=== PATIENT | female | born 1945 | race Caucasian/White ===

== ENCOUNTER 2020-12-18 06:49 | Day surgery (SDC) | payer MEDICARE, OTHER ==
[2020-12-18] MEDS ORDERED: Propofol 200 MG/20 ML SDV ONE (07:24)
[2020-12-18] MEDS ORDERED: fentaNYL 100 MCG/2 ML SDV ONE (07:24)
[2020-12-18] MEDS ORDERED: Sodium Chloride 0.9% 1,000 ML IV SCH (07:30)
--- NOTE | 2020-12-18 14:09 | OR ---
DATE OF PROCEDURE: 12/18/2020 SURGEON: Soren Ferguson MD PROCEDURE: Colonoscopy. FINDINGS: Incomplete colonoscopy due to solid stool. COMPLICATIONS: None. GEROPSYCHOLOGIST: None. PREOPERATIVE DIAGNOSIS: Constipation/abdominal pain. POSTOPERATIVE DIAGNOSIS: Constipation/abdominal pain. RISKS: Risks, benefits, alternatives, limitations including, but not limited to infection, bleeding, perforation, false positives and false negatives were explained to the patient and family and they wished to proceed. PROCEDURE IN DETAIL: The patient was placed in left lateral decubitus position. A digital rectal exam showed a thrombosed hemorrhoid which was small. Scope was introduced into the rectum, sigmoid, and medially, there was a large amount of retained solid stool. There was no way to advance. Therefore, the procedure was terminated. The patient will be scheduled for repeat colonoscopy with longer prep. Soren Ferguson MD /[id number]
== END 2020-12-18 09:56 | disposition home or self-care (01) ==
LOC: JP.SDS 06:49
PROVIDERS: ATTEND Surgery
DX: K59.00 Constipation, unspecified (principal); K64.5 Perianal venous thrombosis; I10 Essential (primary) hypertension; E78.5 Hyperlipidemia, unspecified; E11.9 Type 2 diabetes mellitus without complications; Z88.8 Allergy status to other drugs, medicaments and biological substances
CPT/HCPCS: 45330; J2704; J3010; J7030

== ENCOUNTER 2021-01-12 07:04 | Day surgery (SDC) | payer MEDICARE, OTHER ==
[2021-01-12] MEDS ORDERED: Sodium Chloride 0.9% 1,000 ML IV SCH (08:00)
[2021-01-12] MEDS ORDERED: fentaNYL 100 MCG/2 ML SDV ONE (08:03)
[2021-01-12] MEDS ORDERED: Midazolam 1 MG/ML 2 ML SDV ONE (08:03)
[2021-01-12] MEDS ORDERED: Propofol 200 MG/20 ML SDV ONE (08:03)
--- NOTE | 2021-01-13 09:48 | OR ---
DATE OF PROCEDURE: 01/12/2021 SURGEON: Soren Ferguson MD PROCEDURE: Colonoscopy. FINDINGS: Poor colon prep. COMPLICATIONS: None. EXECUTIVE COMMUNICATIONS MANAGER: None. RISKS: Risks, benefits, alternatives, and limitations including but not limited to infection, bleeding, perforation, false positives, and false negatives were explained to the patient and she wished to proceed. Of note, this was also a patient repeated with a longer prep, and we discussed preoperatively her options if the prep was poor, which this was. She has decided to not have any further screening purposes due to age. PROCEDURE IN DETAIL: The patient was placed in left lateral decubitus position. Digital rectal exam was performed without abnormality. Scope was introduced and advanced atraumatically to the ileocecal valve. A photo was taken of the appendiceal orifice. Scope was brought back through the ascending, transverse, descending colon, and retroflexed. No evidence of old or new blood. No masses. No polyps. The prep was described as poor with approximately 80% of the luminal surface could be seen. No evidence of old or new blood. No masses. No diverticulosis. No abnormalities on retroflexion. The patient tolerated the procedure well. Soren Ferguson MD /[id number]
== END 2021-01-12 09:35 | disposition home or self-care (01) ==
LOC: JP.SDS 07:04
PROVIDERS: ATTEND Surgery
DX: K59.00 Constipation, unspecified (principal); K62.89 Other specified diseases of anus and rectum; G89.29 Other chronic pain; I10 Essential (primary) hypertension; E11.9 Type 2 diabetes mellitus without complications; G30.9 Alzheimer's disease, unspecified; F02.80 Dementia in other diseases classified elsewhere, unspecified severity, without behavioral disturbance, psychotic disturbance, mood disturbance, and anxiety; Z88.8 Allergy status to other drugs, medicaments and biological substances; Z87.19 Personal history of other diseases of the digestive system
CPT/HCPCS: 45378; J2250; J2704; J3010; J7030

== ENCOUNTER 2022-09-05 11:53 | Emergency (ER) | payer MEDICARE, OTHER ==
[2022-09-05 12:28] LABS: ESTIMATED GFR 31 mL/min (>60)
== END 2022-09-05 16:39 | disposition home or self-care (01) ==
LOC: JP.ED 11:53
DX: M48.061 Spinal stenosis, lumbar region without neurogenic claudication (principal); M25.551 Pain in right hip; M25.552 Pain in left hip; G89.29 Other chronic pain; G30.1 Alzheimer's disease with late onset; F02.80 Dementia in other diseases classified elsewhere, unspecified severity, without behavioral disturbance, psychotic disturbance, mood disturbance, and anxiety; E78.00 Pure hypercholesterolemia, unspecified; I12.9 Hypertensive chronic kidney disease with stage 1 through stage 4 chronic kidney disease, or unspecified chronic kidney disease; E11.22 Type 2 diabetes mellitus with diabetic chronic kidney disease; N18.4 Chronic kidney disease, stage 4 (severe); Z79.84 Long term (current) use of oral hypoglycemic drugs; Z88.8 Allergy status to other drugs, medicaments and biological substances; Z79.899 Other long term (current) drug therapy; W18.30XA Fall on same level, unspecified, initial encounter; Y92.000 Kitchen of unspecified non-institutional (private) residence as the place of occurrence of the external cause
CPT/HCPCS: 36415; 71250; 74176; 80053; 81003; 85025; 99284; 99285

== ENCOUNTER 2022-12-27 17:38 | Inpatient (IN) | payer MEDICARE, OTHER ==
[2022-12-27 18:20] LABS: MEAN CORPUSCULAR HEMOGLOBIN 31.9 pg (31.6-35.5); MEAN CORPUSCULAR HGB CONC 33.3 g/dL (31.6-35.5); MEAN CORPUSCULAR VOLUME 95.7 fL (81.4-99.0); RED BLOOD CELL COUNT 3.76 M/uL (3.77-5.24); WHITE BLOOD CELL COUNT,WBC 16.6 K/uL (3.2-11.0)
[2022-12-27 18:35] LABS: CREATININE 1.5 mg/dL (0.6-1.0); EST CRCL DRUG DOSING (CG) 27.55 mL/min; POTASSIUM,K 3.8 mmol/L (3.6-5.2)
[2022-12-27 18:38] LABS: ANION GAP 15.8 mmol/L (5.0-14.0); CALCIUM 12.6 mg/dL (8.5-10.1)
[2022-12-27 19:10] LABS: BASOPHILS ABSOLUTE AUTO 0.05 K/uL (0.00-0.10); BASOPHILS PERCENT AUTO 0.3 % (0.1-1.3); EOSINOPHILS ABSOLUTE AUTO 0.08 K/uL (0.00-0.40); EOSINOPHILS PERCENT AUTO 0.5 % (0.0-5.4); HEMATOCRIT 36.5 % (34.3-46.0); HEMOGLOBIN 12.1 g/dL (11.2-15.5); IMMATURE GRAN PERCENT AUTO 0.6 % (0.0-0.7); LYMPHOCYTES ABSOLUTE AUTO 1.15 K/uL (0.8-3.3); LYMPHOCYTES PERCENT AUTO 6.9 % (11.4-47.7); MEAN CORPUSCULAR HEMOGLOBIN 31.8 pg (31.6-35.5); MEAN CORPUSCULAR HGB CONC 33.2 g/dL (31.6-35.5); MEAN CORPUSCULAR VOLUME 96.1 fL (81.4-99.0); MONOCYTES ABSOLUTE AUTO 0.77 K/uL (0.20-0.90); MONOCYTES PERCENT AUTO 4.6 % (3.3-12.6); NEUTROPHILS ABSOLUTE AUTO 14.48 K/uL (1.0-7.6); NEUTROPHILS PERCENT AUTO 87.1 % (40.0-78.1); PLATELET COUNT,PLT 368 K/uL (130-375); WHITE BLOOD CELL COUNT,WBC 16.6 K/uL (3.2-11.0)
[2022-12-27] MEDS ORDERED: Ondansetron 4 MG Tab.DIS PO PRN (21:02)
[2022-12-27] MEDS ORDERED: Acetaminophen/HYDROcodone 325-5 MG Tab PO PRN (21:02)
[2022-12-27] MEDS ORDERED: Acetaminophen 325 MG Tab PO PRN (21:02)
[2022-12-27] MEDS ORDERED: Promethazine 6.25 MG in Sodium Chloride 0.9% 50 ML IV PRN (21:02)
[2022-12-27 22:34] LABS: BILIRUBIN,URINE NEGATIVE (NEGATIVE); COLOR,URINE YELLOW (YELLOW); GLUCOSE,URINE NEGATIVE (NEGATIVE); KETONES,URINE NEGATIVE (NEGATIVE); LEUKOCYTE ESTERASE,URINE NEGATIVE (NEGATIVE); NITRITE,URINE NEGATIVE (NEGATIVE); OCCULT BLOOD,URINE TRACE-INTACT (NEGATIVE); PROTEIN,URINE 30 mg/dL (NEGATIVE); UROBILINOGEN,URINE 0.2 EU/dL (0.2-1.0)
[2022-12-27 22:35] LABS: AMORPHOUS SEDIMENT,URINE FEW; APPEARANCE,URINE SLIGHTLY CLOUDY (CLEAR); BACTERIA,URINE FEW; EPITHELIAL CELLS,URINE FEW; MUCUS,URINE NOT SEEN; RBC,URINE 0-5 (0-5); WBC,URINE 0-5 (0-5)
[2022-12-27] MEDS ORDERED: LORazepam 0.5 MG Tab PO ONE (23:25)
[2022-12-27] MEDS: atorvaSTATin 20 MG Tab PO SCH (23:47)
[2022-12-28] MEDS ORDERED: LORazepam 0.5 MG Tab PO ONE (00:53)
[2022-12-28] MEDS ORDERED: metFORMIN 500 MG Tab PO SCH (08:00)
[2022-12-28] MEDS: DULoxetine 30 MG Cap PO SCH (08:47)
[2022-12-28] MEDS: Lisinopril 20 MG Tab PO SCH (08:49)
[2022-12-28] MEDS: Furosemide 20 MG Tab PO SCH (08:50)
[2022-12-28] MEDS: amLODIPine 5 MG Tab PO SCH (08:50)
[2022-12-28] MEDS: Memantine 5 MG Tab PO SCH ×2 (08:51→20:17)
[2022-12-28] MEDS ORDERED: Hydrochlorothiazide 25 MG Tab PO SCH (09:00)
[2022-12-28] MEDS ORDERED: Haloperidol Lactate 5 MG/ML SDV IVPUSH PRN (09:37)
[2022-12-28 10:15] LABS: CALCIUM 11.5 mg/dL (8.5-10.1); CREATININE 1.5 mg/dL (0.6-1.0); EST CRCL DRUG DOSING (CG) 27.55 mL/min; POTASSIUM,K 3.4 mmol/L (3.6-5.2)
[2022-12-28 10:17] LABS: ANION GAP 15.4 mmol/L (5.0-14.0)
[2022-12-28] MEDS ORDERED: Lactated Ringers 1,000 ML IV SCH (10:30)
[2022-12-28] MEDS ORDERED: Potassium Chloride 20 MEQ Tab.ER PO ONE (10:35)
[2022-12-28] MEDS: Insulin Lispro 100 Unit/ML 3 ML KwikPen SUBCUT SCH ×3 (11:34→21:00)
[2022-12-28] MEDS: Sodium Chloride 0.9% 1,000 ML IV SCH ×2 (12:08→19:15)
[2022-12-28] MEDS ORDERED: Haloperidol 1 MG Tab PO PRN (12:22)
[2022-12-28] MEDS ORDERED: Furosemide 40 MG/4 ML VIAL IVPUSH ONE (16:00)
[2022-12-28] MEDS: atorvaSTATin 20 MG Tab PO SCH (20:17)
[2022-12-28] MEDS: Melatonin 3 MG Tab PO SCH (20:17)
[2022-12-28 20:34] LABS: ANION GAP 14.8 mmol/L (5.0-14.0); CALCIUM 10.1 mg/dL (8.5-10.1); CREATININE 1.4 mg/dL (0.6-1.0); EST CRCL DRUG DOSING (CG) 29.52 mL/min; POTASSIUM,K 3.8 mmol/L (3.6-5.2)
[2022-12-29 05:36] LABS: HEMATOCRIT 33.4 % (34.3-46.0); HEMOGLOBIN 11.1 g/dL (11.2-15.5); MEAN CORPUSCULAR HEMOGLOBIN 32.2 pg (31.6-35.5); MEAN CORPUSCULAR HGB CONC 33.2 g/dL (31.6-35.5); MEAN CORPUSCULAR VOLUME 96.8 fL (81.4-99.0); RED BLOOD CELL COUNT 3.45 M/uL (3.77-5.24); WHITE BLOOD CELL COUNT,WBC 9.3 K/uL (3.2-11.0)
[2022-12-29 05:52] LABS: CALCIUM 9.7 mg/dL (8.5-10.1); CREATININE 1.1 mg/dL (0.6-1.0); EST CRCL DRUG DOSING (CG) 37.57 mL/min; POTASSIUM,K 3.6 mmol/L (3.6-5.2)
[2022-12-29 05:59] LABS: ANION GAP 14.6 mmol/L (5.0-14.0)
[2022-12-29] MEDS: Insulin Lispro 100 Unit/ML 3 ML KwikPen SUBCUT SCH ×4 (07:36→21:19)
[2022-12-29] MEDS ORDERED: Potassium Chloride 20 MEQ Tab.ER PO ONE (08:15)
[2022-12-29] MEDS: DULoxetine 30 MG Cap PO SCH (08:41)
[2022-12-29] MEDS: Memantine 5 MG Tab PO SCH ×2 (08:41→21:21)
[2022-12-29] MEDS: Lisinopril 20 MG Tab PO SCH (08:41)
[2022-12-29] MEDS: amLODIPine 5 MG Tab PO SCH (08:42)
[2022-12-29] MEDS: Furosemide 20 MG Tab PO SCH (08:42)
[2022-12-29] MEDS ORDERED: Sennosides/Docusate Sodium 50-8.6 MG Tab PO PRN (08:45)
[2022-12-29] MEDS ORDERED: Polyethylene Glycol 3350 Powder 17 GM Packet PO PRN (08:45)
[2022-12-29] MEDS: Melatonin 3 MG Tab PO SCH (21:20)
[2022-12-29] MEDS: atorvaSTATin 20 MG Tab PO SCH (21:20)
[2022-12-30 05:59] LABS: CALCIUM 9.4 mg/dL (8.5-10.1); CREATININE 1.1 mg/dL (0.6-1.0); EST CRCL DRUG DOSING (CG) 37.57 mL/min; POTASSIUM,K 4.6 mmol/L (3.6-5.2)
[2022-12-30 06:00] LABS: ANION GAP 13.6 mmol/L (5.0-14.0)
[2022-12-30] MEDS: Insulin Lispro 100 Unit/ML 3 ML KwikPen SUBCUT SCH (07:37)
[2022-12-30] MEDS: Lisinopril 20 MG Tab PO SCH (08:04)
[2022-12-30] MEDS: amLODIPine 5 MG Tab PO SCH (08:05)
[2022-12-30] MEDS: Furosemide 20 MG Tab PO SCH (08:05)
[2022-12-30] MEDS: Memantine 5 MG Tab PO SCH (08:05)
[2022-12-30] MEDS: DULoxetine 30 MG Cap PO SCH (08:05)
== END 2022-12-30 12:30 | disposition home health service (06) | DRG 641 ==
LOC: JP.ED 17:38 → JP.MS 21:02 → JP.ED 22:38 → JP.MS 12-28 09:19
PROVIDERS: ADMIT Family Medicine; ATTEND Internal Medicine
DX: R53.1 Weakness (principal); E83.52 Hypercalcemia; F02.C3 Dementia in other diseases classified elsewhere, severe, with mood disturbance; F02.C4 Dementia in other diseases classified elsewhere, severe, with anxiety; T50.2X5A Adverse effect of carbonic-anhydrase inhibitors, benzothiadiazides and other diuretics, initial encounter; G30.1 Alzheimer's disease with late onset; E11.9 Type 2 diabetes mellitus without complications; I10 Essential (primary) hypertension; R29.6 Repeated falls; E11.22 Type 2 diabetes mellitus with diabetic chronic kidney disease; I12.9 Hypertensive chronic kidney disease with stage 1 through stage 4 chronic kidney disease, or unspecified chronic kidney disease; W18.2XXA Fall in (into) shower or empty bathtub, initial encounter; E78.5 Hyperlipidemia, unspecified; E78.00 Pure hypercholesterolemia, unspecified; K59.09 Other constipation; G89.29 Other chronic pain; W19.XXXA Unspecified fall, initial encounter; M25.551 Pain in right hip; H91.90 Unspecified hearing loss, unspecified ear; F41.9 Anxiety disorder, unspecified; D72.823 Leukemoid reaction; Z20.822 Contact with and (suspected) exposure to COVID-19; N18.32 Chronic kidney disease, stage 3b; M81.0 Age-related osteoporosis without current pathological fracture; Z98.51 Tubal ligation status; Z88.6 Allergy status to analgesic agent; Z98.49 Cataract extraction status, unspecified eye; Z98.890 Other specified postprocedural states; Z79.84 Long term (current) use of oral hypoglycemic drugs; Z79.899 Other long term (current) drug therapy; Y92.009 Unspecified place in unspecified non-institutional (private) residence as the place of occurrence of the external cause
CPT/HCPCS: 36415; 71045; 73501; 80048; 83970; 85025; 85027; A9270; U0002; 81001; 82947; 97110-GP; 97162-GP; 97165-GO; 99233; 99238; 99285; J1630; J1815; J1940; J7030; J7120

== ENCOUNTER 2023-01-10 14:02 | Emergency (ER) | payer MEDICARE, OTHER ==
[2023-01-10] MEDS ORDERED: Bacitracin Oint 1 GM U/D Packet TOP ONE (15:25)
== END 2023-01-10 16:09 | disposition home or self-care (01) ==
LOC: JP.ED 14:02
DX: S02.2XXB Fracture of nasal bones, initial encounter for open fracture (principal); S80.02XA Contusion of left knee, initial encounter; R04.0 Epistaxis; R29.6 Repeated falls; I10 Essential (primary) hypertension; E11.9 Type 2 diabetes mellitus without complications; E78.00 Pure hypercholesterolemia, unspecified; Z88.6 Allergy status to analgesic agent; Z79.84 Long term (current) use of oral hypoglycemic drugs; Z79.899 Other long term (current) drug therapy; W19.XXXA Unspecified fall, initial encounter
CPT/HCPCS: 70450; 70450-26; 70486; 70486-26; 99284

== ENCOUNTER 2023-03-10 08:35 | Emergency (ER) | payer MEDICARE, OTHER ==
[2023-03-10 09:25] LABS: BASOPHILS ABSOLUTE AUTO 0.05 K/uL (0.00-0.10); BASOPHILS PERCENT AUTO 0.5 % (0.1-1.3); EOSINOPHILS ABSOLUTE AUTO 0.38 K/uL (0.00-0.40); EOSINOPHILS PERCENT AUTO 3.7 % (0.0-5.4); HEMATOCRIT 37.2 % (34.3-46.0); HEMOGLOBIN 12.2 g/dL (11.2-15.5); IMMATURE GRAN ABSOLUTE AUTO 0.04 K/uL (0.00-0.23); IMMATURE GRAN PERCENT AUTO 0.4 % (0.0-0.7); LYMPHOCYTES ABSOLUTE AUTO 1.45 K/uL (0.8-3.3); LYMPHOCYTES PERCENT AUTO 14.1 % (11.4-47.7); MEAN CORPUSCULAR HGB CONC 32.8 g/dL (31.6-35.5); MEAN CORPUSCULAR VOLUME 94.4 fL (81.4-99.0); MONOCYTES ABSOLUTE AUTO 0.64 K/uL (0.20-0.90); MONOCYTES PERCENT AUTO 6.2 % (3.3-12.6); NEUTROPHILS ABSOLUTE AUTO 7.76 K/uL (1.0-7.6); NEUTROPHILS PERCENT AUTO 75.1 % (40.0-78.1); PLATELET COUNT,PLT 413 K/uL (130-375); RED BLOOD CELL COUNT 3.94 M/uL (3.77-5.24); WHITE BLOOD CELL COUNT,WBC 10.3 K/uL (3.2-11.0)
[2023-03-10 09:41] LABS: ANION GAP 13.8 mmol/L (5.0-14.0); CALCIUM 9.1 mg/dL (8.5-10.1); CREATININE 1.2 mg/dL (0.6-1.0); EST CRCL DRUG DOSING (CG) 33.9 mL/min; POTASSIUM,K 4.8 mmol/L (3.6-5.2)
== END 2023-03-10 10:05 | disposition home or self-care (01) ==
LOC: JP.ED 08:35
DX: G30.1 Alzheimer's disease with late onset (principal); D64.9 Anemia, unspecified; R29.6 Repeated falls; W18.30XA Fall on same level, unspecified, initial encounter; E78.00 Pure hypercholesterolemia, unspecified; I10 Essential (primary) hypertension; E11.9 Type 2 diabetes mellitus without complications; Z88.5 Allergy status to narcotic agent; Z79.899 Other long term (current) drug therapy; Z79.84 Long term (current) use of oral hypoglycemic drugs
CPT/HCPCS: 36415; 80048; 85025; 99283

== ENCOUNTER 2024-03-10 01:21 | Emergency (ER) | payer MEDICARE, OTHER ==
[2024-03-10 01:40] LABS: BASOPHILS ABSOLUTE AUTO 0.06 K/uL (0.00-0.10); BASOPHILS PERCENT AUTO 0.4 % (0.1-1.3); EOSINOPHILS ABSOLUTE AUTO 0.19 K/uL (0.00-0.40); EOSINOPHILS PERCENT AUTO 1.2 % (0.0-5.4); HEMATOCRIT 30.8 % (34.3-46.0); HEMOGLOBIN 9.9 g/dL (11.2-15.5); IMMATURE GRAN ABSOLUTE AUTO 0.17 K/uL (0.00-0.23); IMMATURE GRAN PERCENT AUTO 1.1 % (0.0-0.7); LYMPHOCYTES ABSOLUTE AUTO 1.34 K/uL (0.8-3.3); LYMPHOCYTES PERCENT AUTO 8.5 % (11.4-47.7); MEAN CORPUSCULAR HEMOGLOBIN 29.1 pg (31.6-35.5); MEAN CORPUSCULAR HGB CONC 32.1 g/dL (31.6-35.5); MEAN CORPUSCULAR VOLUME 90.6 fL (81.4-99.0); MONOCYTES ABSOLUTE AUTO 0.78 K/uL (0.20-0.90); NEUTROPHILS PERCENT AUTO 83.8 % (40.0-78.1); PLATELET COUNT,PLT 422 K/uL (130-375); WHITE BLOOD CELL COUNT,WBC 15.7 K/uL (3.2-11.0)
[2024-03-10 02:00] LABS: A/G RATIO 0.9 (1.2-2.2); ALANINE AMINOTRANSFERASE,ALT 21 U/L (12-78); ALBUMIN 3.6 g/dL (3.4-5.0); ALKALINE PHOSPHATASE 102 U/L (46-116); ASPARTATE AMNIOTRANSFERASE,AST 12 U/L (15-37); BILIRUBIN TOTAL 0.3 mg/dL (0.2-1.0); BLOOD UREA NITROGEN,BUN 22 mg/dL (7-18); CALCIUM 9.4 mg/dL (8.5-10.1); CARBON DIOXIDE,CO2 25 mmol/L (21-32); CHLORIDE,CL 92 mmol/L (100-108); CREATININE 1.6 mg/dL (0.6-1.0); ESTIMATED GFR 33 mL/min (>60); GLUCOSE RANDOM 269 mg/dL (74-106); POTASSIUM,K 5.3 mmol/L (3.6-5.2); PROTEIN TOTAL,TP 7.5 g/dL (6.4-8.2); SODIUM,NA 130 mmol/L (140-148)
[2024-03-10 02:03] LABS: ANION GAP 18.3 mmol/L (5.0-14.0)
[2024-03-10 02:15] LABS: IRON,FE 41 ug/dL (50-170); PERCENT FE SATURATION 13 % (20-55); TOTAL IRON BINDING CAPACITY 308 ug/dl (250-450)
== END 2024-03-10 03:22 ==
LOC: JP.ED 01:21
DX: D50.9 Iron deficiency anemia, unspecified (principal); S00.93XA Contusion of unspecified part of head, initial encounter; I10 Essential (primary) hypertension; E78.00 Pure hypercholesterolemia, unspecified; E11.9 Type 2 diabetes mellitus without complications; Z79.899 Other long term (current) drug therapy; Z79.84 Long term (current) use of oral hypoglycemic drugs; Z88.8 Allergy status to other drugs, medicaments and biological substances; X58.XXXA Exposure to other specified factors, initial encounter
CPT/HCPCS: 36415; 70160; 70450; 80053; 83550; 85025; 99284; 99285

== ENCOUNTER 2024-09-07 18:11 | Emergency (ER) | payer MEDICARE ==
[2024-09-07 21:48] LABS: BASOPHILS ABSOLUTE AUTO 0.05 K/uL (0.00-0.10); BASOPHILS PERCENT AUTO 0.5 % (0.1-1.3); EOSINOPHILS ABSOLUTE AUTO 0.09 K/uL (0.00-0.40); EOSINOPHILS PERCENT AUTO 0.8 % (0.0-5.4); HEMATOCRIT 35.9 % (34.3-46.0); HEMOGLOBIN 11.6 g/dL (11.2-15.5); IMMATURE GRAN ABSOLUTE AUTO 0.04 K/uL (0.00-0.23); IMMATURE GRAN PERCENT AUTO 0.4 % (0.0-0.7); LYMPHOCYTES ABSOLUTE AUTO 1.63 K/uL (0.8-3.3); LYMPHOCYTES PERCENT AUTO 15.1 % (11.4-47.7); MEAN CORPUSCULAR HEMOGLOBIN 30.9 pg (31.6-35.5); MEAN CORPUSCULAR HGB CONC 32.3 g/dL (31.6-35.5); MEAN CORPUSCULAR VOLUME 95.7 fL (81.4-99.0); MONOCYTES ABSOLUTE AUTO 0.55 K/uL (0.20-0.90); MONOCYTES PERCENT AUTO 5.1 % (3.3-12.6); NEUTROPHILS ABSOLUTE AUTO 8.46 K/uL (1.0-7.6); NEUTROPHILS PERCENT AUTO 78.1 % (40.0-78.1); PLATELET COUNT,PLT 478 K/uL (130-375); RED BLOOD CELL COUNT 3.75 M/uL (3.77-5.24); WHITE BLOOD CELL COUNT,WBC 10.8 K/uL (3.2-11.0)
[2024-09-07 22:04] LABS: CALCIUM 9.9 mg/dL (8.5-10.1); CREATININE 1.8 mg/dL (0.6-1.0); EST CRCL DRUG DOSING (CG) 22.24 mL/min
[2024-09-07] MEDS ORDERED: Sodium Chloride 0.9% 10 ML Syringe FLUSH PRN (22:12)
[2024-09-07] MEDS ORDERED: 50% Dextrose in Water 50 ML Syringe IVPUSH PRN (22:12)
[2024-09-07] MEDS ORDERED: Glucagon,Human Recombinant 1 MG Vial IM PRN (22:12)
[2024-09-07] MEDS: Sodium Zirconium Cyclosilicate 10 GM Packet PO SCH (23:47)
[2024-09-08] MEDS: Albuterol 0.083% 2.5 MG/3 ML Neb Soln NEB ONE
[2024-09-08] MEDS: Sodium Zirconium Cyclosilicate 10 GM Packet PO ONE (00:03)
[2024-09-08 00:05] LABS: APPEARANCE,URINE CLEAR (CLEAR); BILIRUBIN,URINE NEGATIVE (NEGATIVE); COLOR,URINE YELLOW (YELLOW); GLUCOSE,URINE NEGATIVE (NEGATIVE); KETONES,URINE NEGATIVE (NEGATIVE); LEUKOCYTE ESTERASE,URINE NEGATIVE (NEGATIVE); NITRITE,URINE NEGATIVE (NEGATIVE); OCCULT BLOOD,URINE NEGATIVE (NEGATIVE); PH,URINE 5.5 (5.0-8.0); PROTEIN,URINE NEGATIVE (NEGATIVE); UROBILINOGEN,URINE 0.2 EU/dL (0.2-1.0)
[2024-09-08] MEDS: Calcium Gluconate 10% 1 GM/10 ML SDV IV ONE (00:08)
[2024-09-08] MEDS: 50% Dextrose in Water 50 ML Syringe IVPUSH ONE (00:13)
[2024-09-08] MEDS: Insulin Regular, Human 100 Units/ML 10 ML Vial IVPUSH ONE (00:17)
[2024-09-08 00:28] LABS: AMORPHOUS SEDIMENT,URINE NOT SEEN; BACTERIA,URINE FEW; EPITHELIAL CELLS,URINE NOT SEEN; MUCUS,URINE NOT SEEN; RBC,URINE 0-5 (0-5); WBC,URINE 0-5 (0-5)
[2024-09-08] MEDS: Sodium Chloride 0.9% 1,000 ML IV ONE (03:22)
[2024-09-08] MEDS: QUEtiapine 25 MG Tab PO ONE (04:30)
== END 2024-09-08 08:05 ==
LOC: JP.ED 18:11
DX: S00.03XA Contusion of scalp, initial encounter (principal); E87.5 Hyperkalemia; N17.9 Acute kidney failure, unspecified; Z88.8 Allergy status to other drugs, medicaments and biological substances; I10 Essential (primary) hypertension; E78.00 Pure hypercholesterolemia, unspecified; E11.9 Type 2 diabetes mellitus without complications; Z79.899 Other long term (current) drug therapy; W19.XXXA Unspecified fall, initial encounter
CPT/HCPCS: 36415; 70450; 72125; 76377; 80048; 81001; 82947; 84132; 85025; 93005; 93010; 96361; 96374; 96375; 99284; 99285; A9270; J0612; J7030

== ENCOUNTER 2024-10-13 12:17 | Emergency (ER) | payer MEDICARE | END 2024-10-13 14:01 | LOC: JP.ED 12:17 | DX: S40.022A Contusion of left upper arm, initial encounter (principal); I10 Essential (primary) hypertension; E78.00 Pure hypercholesterolemia, unspecified; E11.9 Type 2 diabetes mellitus without complications; Z88.8 Allergy status to other drugs, medicaments and biological substances; Z79.84 Long term (current) use of oral hypoglycemic drugs; Z79.899 Other long term (current) drug therapy; X58.XXXA Exposure to other specified factors, initial encounter | CPT/HCPCS: 73030-26-LT; 73030-LT; 73080-26-LT; 73080-LT; 99284 ==